=== PATIENT | male | born 1995 | race Hispanic/Latino ===

== ENCOUNTER 2018-03-12 22:33 | Emergency (ER) | payer SELFPAY ==
--- NOTE | 2018-03-12 23:26 | ER ---
Nurse's Notes [facility] Name: Vijay Haynes Age: 23 yrs Sex: Male : 1995 Arrival Date: 03/12/2018 Time: 22:37 Bed 18 Private MD: Diagnosis: Fall due to bumping against object;Displaced fracture of shaft of unspecified clavicle Presentation: 03/12 22:48 Presenting complaint: Patient states: left shoulder pain at 2200 while playing soccer, ak1 bruising noted to left shoulder. Transition of care: patient was not received from another setting of care. Onset of symptoms was March 12, 2018. Risk Assessment: Do you want to hurt yourself or someone else? Patient reports no desire to harm self or others. Initial Sepsis Screen: Does the patient meet any 2 criteria? No. Patient's initial sepsis screen is negative. Does the patient have a suspected source of infection? No. Patient's initial sepsis screen is negative. Care prior to arrival: None. 22:48 Acuity: BENEDICT 4 ak1 22:48 Method Of Arrival: Ambulatory ak1 Triage Assessment: 22:49 General: Appears uncomfortable, Behavior is cooperative, anxious. Pain: Complains of ak1 pain in left shoulder. EENT: No signs and/or symptoms were reported regarding the EENT system. Neuro: No deficits noted. Cardiovascular: No deficits noted. Respiratory: No deficits noted. GI: No signs and/or symptoms were reported involving the gastrointestinal system. : No signs and/or symptoms were reported regarding the genitourinary system. Derm: No signs and/or symptoms reported regarding the dermatologic system. Musculoskeletal: Range of motion: limited in left shoulder pt c/o pain to left shoulder s/p fall while playing soccer. Injury Description: pt fell while playing soccer, pain to left shoulder. Historical: - Allergies: 22:49 No Known Allergies; ak1 - Home Meds: 22:49 None [Active]; ak1 - PMHx: 22:49 None; ak1 - PSHx: 22:49 None; ak1 - Immunization history:: Adult Immunizations unknown. - Social history:: Smoking status: Patient/guardian denies using tobacco, Patient uses alcohol, today while playing soccer. - Ebola Screening: : No symptoms or risks identified at this time. - Family history:: not pertinent. Screenin:53 Abuse screen: Denies threats or abuse. Denies injuries from another. Nutritional ak1 screening: No deficits noted. Tuberculosis screening: No symptoms or risk factors identified. Fall Risk None identified. Assessment: 22:53 Reassessment: Patient appears in no apparent distress at this time. No changes from ak1 previously documented assessment. Patient and/or family updated on plan of care and expected duration. Pain level reassessed. Patient is alert, oriented x 3, equal unlabored respirations, skin warm/dry/pink. see triage assessment. Vital Signs: 22:49 BP 128 / 89; Pulse 133; Resp 16; Temp 99.6(O); Pulse Ox 98% on R/A; Weight 68.04 kg ak1 (R); Height 5 ft. 6 in. (167.64 cm) (R); Pain 7/10; 23:58 BP 133 / 91; Pulse 88; Resp 18; Temp 98.6; Pulse Ox 98% on R/A; Pain 5/10; ak1 22:49 Body Mass Index 24.21 (68.04 kg, 167.64 cm) ak1 ED Course: 22:37 Patient arrived in ED. al2 22:41 Israel Richardson MD is Attending Physician. ayel 22:48 Melba Chavez, ELMO is Primary Nurse. ak1 22:49 Triage completed. ak1 22:49 Arm band placed on Patient placed in an exam room, on a stretcher, on pulse oximetry, ak1 Patient notified of wait time. 22:53 Patient has correct armband on for positive identification. Placed in gown. Bed in low ak1 position. Call light in reach. Side rails up X 1. Adult w/ patient. desk monitor on. Pulse ox on. NIBP on. 23:20 X-ray completed. Portable x-ray completed in exam room. Patient tolerated procedure ag1 well. 23:23 Clavicle Left XRAY In Process Unspecified. EDMS 23:25 Ender Reyna MD is Referral Physician. [facility] 23:58 No provider procedures requiring assistance completed. Patient did not have IV access ak1 during this emergency room visit. Administered Medications: 23:26 Drug: Motrin 400 mg Route: PO; ak1 23:26 Follow up: Response: No adverse reaction ak1 23:26 Drug: Independence (7.5 mg-325 mg) 1 tabs Route: PO; ak1 23:27 Follow up: Response: No adverse reaction ak1 Outcome: 23:25 Discharge ordered by . yael 23:59 Discharged to home ambulatory, with family. ak1 23:59 Condition: stable 23:59 Discharge instructions given to patient, family, Instructed on discharge instructions, follow up and referral plans. no drinking with medication, no driving heavy equipment, medication usage, Demonstrated understanding of instructions, follow-up care, medications, Prescriptions given X 2. 23:59 Patient left the ED. ak1 Signatures: Dispatcher [employer] EDKS Israel Richardson MD MD cha Krenek, Amber, RN RN ak1 Alondra Jeff1 Rona Barreto
--- NOTE | 2018-03-12 23:26 | EDPHYS ---
Physician Documentation [facility] Name: Vijay Haynes Age: 23 yrs Sex: Male : 1995 Arrival Date: 03/12/2018 Time: 22:37 Bed 18 Private MD: ED Physician Israel Richardson HPI: 03/12 23:02 This 23 yrs old Male presents to ER via Ambulatory with complaints of Shoulder yael Injury. 23:02 The patient or guardian complains of decreased range of motion, pain, that is acute. yael left clavicle. Context: The problem was sustained at a sports field or court. Onset: The symptoms/episode began/occurred just prior to arrival. Modifying factors: the symptoms are alleviated by remaining still, The symptoms are aggravated by lifting weight, movement, rotation of arm. Associated signs and symptoms: The patient has no apparent associated signs or symptoms. Severity of symptoms: At their worst the symptoms were moderate, in the emergency department the symptoms are unchanged. Treatment prior to arrival includes: no previous treatment. Historical: - Allergies: 22:49 No Known Allergies; ak1 - Home Meds: 22:49 None [Active]; ak1 - PMHx: 22:49 None; ak1 - PSHx: 22:49 None; ak1 - Immunization history:: Adult Immunizations unknown. - Social history:: Smoking status: Patient/guardian denies using tobacco, Patient uses alcohol, today while playing soccer. - Ebola Screening: : No symptoms or risks identified at this time. - Family history:: not pertinent. ROS: 23:02 Constitutional: Negative for fever, chills, and weight loss, Eyes: Negative for injury, yale pain, redness, and discharge, ENT: Negative for injury, pain, and discharge, Neck: Negative for injury, pain, and swelling, Respiratory: Negative for shortness of breath, cough, wheezing, and pleuritic chest pain, Abdomen/GI: Negative for abdominal pain, nausea, vomiting, diarrhea, and constipation, Back: Negative for injury and pain, : Negative for injury, bleeding, discharge, and swelling, MS/Extremity: Negative for injury and deformity, Skin: Negative for injury, rash, and discoloration, Neuro: Negative for headache, weakness, numbness, tingling, and seizure, Psych: Negative for depression, anxiety, suicide ideation, homicidal ideation, and hallucinations, Allergy/Immunology: Negative for hives, rash, and allergies, Endocrine: Negative for neck swelling, polydipsia, polyuria, polyphagia, and marked weight changes, Hematologic/Lymphatic: Negative for swollen nodes, abnormal bleeding, and unusual bruising. 23:02 Cardiovascular: Positive for chest pain, with movement, of the left clavicle. Exam: 23:02 Constitutional: This is a well developed, well nourished patient who is awake, alert, yael and in no acute distress. Head/Face: Normocephalic, atraumatic. Eyes: Pupils equal round and reactive to light, extra-ocular motions intact. Lids and lashes normal. Conjunctiva and sclera are non-icteric and not injected. Cornea within normal limits. Periorbital areas with no swelling, redness, or edema. ENT: Nares patent. No nasal discharge, no septal abnormalities noted. Tympanic membranes are normal and external auditory canals are clear. Oropharynx with no redness, swelling, or masses, exudates, or evidence of obstruction, uvula midline. Mucous membranes moist. Neck: Trachea midline, no thyromegaly or masses palpated, and no cervical lymphadenopathy. Supple, full range of motion without nuchal rigidity, or vertebral point tenderness. No Meningismus. Cardiovascular: Regular rate and rhythm with a normal S1 and S2. No gallops, murmurs, or rubs. Normal PMI, no JVD. No pulse deficits. Respiratory: Lungs have equal breath sounds bilaterally, clear to auscultation and percussion. No rales, rhonchi or wheezes noted. No increased work of breathing, no retractions or nasal flaring. Abdomen/GI: Soft, non-tender, with normal bowel sounds. No distension or tympany. No guarding or rebound. No evidence of tenderness throughout. Back: No spinal tenderness. No costovertebral tenderness. Full range of motion. Male : Normal genitalia with no discharge or lesions. Skin: Warm, dry with normal turgor. Normal color with no rashes, no lesions, and no evidence of cellulitis. MS/ Extremity: Pulses equal, no cyanosis. Neurovascular intact. Full, normal range of motion. Neuro: Awake and alert, GCS 15, oriented to person, place, time, and situation. Cranial nerves II-XII grossly intact. Motor strength 5/5 in all extremities. Sensory grossly intact. Cerebellar exam normal. Normal gait. Psych: Awake, alert, with orientation to person, place and time. Behavior, mood, and affect are within normal limits. 23:02 Chest/axilla: Inspection: normal, Palpation: tenderness, that is mild, that is moderate, of the left clavicle. Vital Signs: 22:49 BP 128 / 89; Pulse 133; Resp 16; Temp 99.6(O); Pulse Ox 98% on R/A; Weight 68.04 kg ak1 (R); Height 5 ft. 6 in. (167.64 cm) (R); Pain 7/10; 23:58 BP 133 / 91; Pulse 88; Resp 18; Temp 98.6; Pulse Ox 98% on R/A; Pain 5/10; ak1 22:49 Body Mass Index 24.21 (68.04 kg, 167.64 cm) ak1 Procedures: 23:02 Splinting: using sling, applied by tech. Patient tolerated well. [facility] MDM: 22:41 Patient medically screened. [facility] 23:02 Data reviewed: vital signs, nurses notes, radiologic studies, plain films. [facility] 03/12 23:01 Order name: Clavicle Left XRAY [facility] 03/12 23:02 Order name: Sling; Complete Time: 23:57 [facility] Administered Medications: 23:26 Drug: Motrin 400 mg Route: PO; ak1 23:26 Follow up: Response: No adverse reaction [facility] 23:26 Drug: Dunlo (7.5 mg-325 mg) 1 tabs Route: PO; ak1 23:27 Follow up: Response: No adverse reaction [facility] Disposition: 03/12/18 23:25 Discharged to Home. Impression: Fall due to bumping against object, Displaced fracture of shaft of unspecified clavicle. - Condition is Stable. - Discharge Instructions: Clavicle Fracture, How to Use a Clavicle Strap, Clavicle Fracture, [id number]. - Prescriptions for Tylenol- Codeine #3 300-30 mg Oral Tablet - take 2 tablet by ORAL route every 6 hours As needed; 30 tablet. Motrin IB 200 mg Oral Tablet - take 2 tablet by ORAL route every 8 hours As needed as needed with food; 24 tablet. - Medication Reconciliation Form, Thank You Letter, Antibiotic Education, Prescription Opioid Use form. - Follow up: Private Physician; When: 2 - 3 days; Reason: Recheck today's complaints, Continuance of care, Re-evaluation by your physician. Follow up: Ender Reyna; When: 2 - 3 days; Reason: Recheck today's complaints, Continuance of care, Re-evaluation by your physician. - Problem is new. - Symptoms have improved. Signatures: Dispatcher [employer] EDMS Israel Richardson MD MD cha Krenek, Amber, RN RN ak1 Corrections: (The following items were deleted from the chart) 23:59 23:25 03/12/2018 23:25 Discharged to Home. Impression: Fall due to bumping against ak1 object; Displaced fracture of shaft of unspecified clavicle. Condition is Stable. Discharge Instructions: Clavicle Fracture, How to Use a Clavicle Strap, Clavicle Fracture, [id number]. Prescriptions for Tylenol-Codeine #3 300-30 mg Oral Tablet - take 2 tablet by ORAL route every 6 hours As needed; 30 tablet, Motrin IB 200 mg Oral Tablet - take 2 tablet by ORAL route every 8 hours As needed as needed with food; 24 tablet. and Forms are Medication Reconciliation Form, Thank You Letter, Antibiotic Education, Prescription Opioid Use. Follow up: Private Physician; When: 2 - 3 days; Reason: Recheck today's complaints, Continuance of care, Re-evaluation by your physician. Follow up: Ender Reyna; When: 2 - 3 days; Reason: Recheck today's complaints, Continuance of care, Re-evaluation by your physician. Problem is new. Symptoms have improved. yael
[2018-03-12] MEDS ORDERED: IBUPROFEN 400 MG TAB ONE (23:31)
[2018-03-12] MEDS ORDERED: HYDROCODONE/APAP 7.5/325 MG TAB ONE (23:31)
--- NOTE | 2018-03-13 07:56 | RAD REPORT ---
EXAM DESCRIPTION: RAD - Clavicle Left - 03/12/2018 11:23 pm COMPARISON: None. FINDINGS: Midshaft clavicle fracture with a slight superior bowing deformity. Fracture line is distr acted 1 millimeter at the superior margin with no distraction at the inferior margin. There is no ove rlap. Sternoclavicular and acromioclavicular joints are unremarkable. IMPRESSION: Left midshaft clavicle fracture as detailed.
== END 2018-03-12 23:59 | disposition home or self-care (01) ==
LOC: ER 22:33
DX: S42.022A Displaced fracture of shaft of left clavicle, initial encounter for closed fracture (principal); X58.XXXA Exposure to other specified factors, initial encounter; Y93.66 Activity, soccer; Y92.322 Soccer field as the place of occurrence of the external cause
CPT/HCPCS: 99284